=== PATIENT | male | born 1965 | race African-American/Black ===

== ENCOUNTER 2019-06-26 08:47 | Emergency (ER) | payer MEDICAID ==
[~2019-06-26] VITALS: Ht 177.8 cm; Wt 100.0 kg
[2019-06-26] MEDS ORDERED: ACETAMINOPHEN 500MG TABLET PO ONE (10:45)
[2019-06-26 12:57] VITALS: BP 107/68
== END 2019-06-26 14:58 | disposition home or self-care (01) ==
LOC: ER 08:47
DX: S60.812A Abrasion of left wrist, initial encounter (principal); M25.531 Pain in right wrist; E11.9 Type 2 diabetes mellitus without complications; I10 Essential (primary) hypertension; Z98.890 Other specified postprocedural states; Z89.511 Acquired absence of right leg below knee; X58.XXXA Exposure to other specified factors, initial encounter; Y93.89 Activity, other specified; Y92.89 Other specified places as the place of occurrence of the external cause; Y99.8 Other external cause status
CPT/HCPCS: 73110; 99283